=== PATIENT | female | born 1985 | race African-American/Black ===

== ENCOUNTER 2023-05-30 08:39 | Emergency (ER) | payer OTHER ==
[~2023-05-30] VITALS: Ht 175.3 cm; Wt 86.2 kg
[2023-05-30] MEDS ORDERED: LIDOCAINE 5% PATCH TD ONE ×2 (09:09→09:15)
[2023-05-30] MEDS ORDERED: ACETAMINOPHEN ES 500 MG TABLET ONE (09:10)
[2023-05-30] MEDS ORDERED: ACETAMINOPHEN ES 500 MG TABLET PO ONE (09:15)
[2023-05-30 09:32] LABS: *BILIRUBIN,URIN NEGATIVE (NEGATIVE); *BLOOD, URINE NEGATIVE (NEGATIVE); *CLARITY,URINE CLEAR (CLEAR); *COLOR,URINE YELLOW (YELLOW); *KETONES,URINE NEGATIVE (NEGATIVE); *PROTEIN,URINE 1+ (NEGATIVE); *UROBILINOGEN,URINE 0.2 E.U./dl (NORMAL); LEUKOCYTE ESTERASE ,URINE NEGATIVE (NEGATIVE); NITRITE, URINE NEGATIVE (NEGATIVE); UGLUCOSE NEGATIVE (NEGATIVE)
[2023-05-30] MEDS ORDERED: ACET-2605 PO (10:22)
[2023-05-30] MEDS ORDERED: LIDO30AD10 TP (10:24)
[2023-05-30 10:33] VITALS: BP 120/70; O2SAT 100
[2023-05-30 11:34] LABS: BACTERIA,URINE MANY /HPF (NONE SEEN); SQUAMOUS EPITHELIAL CELL,UR MODERATE /HPF (NONE SEEN); WBC,URINE 0-3 /HPF (0-3)
== END 2023-05-30 10:35 | disposition home or self-care (01) ==
LOC: ER 08:39
DX: O26.892 Other specified pregnancy related conditions, second trimester (principal); M54.50 Low back pain, unspecified; Z79.899 Other long term (current) drug therapy
CPT/HCPCS: 76856; A4606; A4663; A9150